=== PATIENT | female | born 1995 | race Caucasian/White ===

== ENCOUNTER 2020-05-06 10:31 | Emergency (ER) | payer OTHER, SELFPAY ==
[2020-05-06] MEDS ORDERED: ACETAMINOPHEN 325 MG TABLET ONE (11:58)
[2020-05-06 14:19] LABS: Absolute Lymphocytes (CBC) 0.9 K/uL (0.7-4.9); Basophils % 0.3 % (0-1.3); Lymphocytes % 6.3 % (15.3-44.8); MPV 8.5 fL (7.6-11.3); RBC Red Blood Cell Count 4.56 M/uL (3.86-4.86)
[2020-05-06 14:39] LABS: ALT/SGPT 15 U/L (12-78); AST/SGOT 15 U/L (15-37); Albumin 3.9 g/dL (3.4-5.0); Alkaline Phosphatase 77 U/L (45-117); BUN Blood Urea Nitrogen 13 mg/dL (7-18); Bicarbonate 27 mmol/L (21-32); Bilirubin Direct 0.2 mg/dL (0-0.2); Bilirubin Total 0.8 mg/dL (0.2-1.0); Glucose Level 83 mg/dL (74-106); Lipase 46 U/L (73-393); Potassium 3.8 mmol/L (3.5-5.1); Protein, Total 8.2 g/dL (6.4-8.2); Sodium Level 140 mmol/L (136-145)
[2020-05-06 15:11] LABS: Urine Bacteria 20-50 /HPF (<20); Urine RBC <5 /HPF (NONE SEEN)
[2020-05-06 15:36] LABS: Urine Blood 2+ (NEG); Urine Glucose NEGATIVE (NEG); Urine Protein 2+ (NEG)
--- NOTE | 2020-05-06 16:31 | RAD REPORT ---
EXAM DESCRIPTION: CT - Abdomen Pelvis W Contrast - 05/06/2020 4:12 pm CLINICAL HISTORY: ABD PAIN COMPARISON: No comparisons TECHNIQUE: Biphasic, helical CT imaging of the abdomen and pelvis was performed following 100 ml non -ionic IV contrast. No oral contrast administered. All CT scans are performed using dose optimization technique as appropriate and may include automated exposure control or mA/KV adjustment according to patient size. FINDINGS: No suspicious findings in the lung bases. The liver, spleen, and pancreas show no suspicious findings. Gallbladder and biliary tree are also wi thout suspicious finding. Renal function is asymmetric and delayed on the right. Right renal parenchymal enhancement is slightl y heterogeneous relative to the left. Minimal dilatation of the right ureter with enhancement of the right ureter hines. No obstructing or nonobstructing calculus identified. No solid mass of the renal parenchyma. Urinary bladder is contracted. Wall thickening and low-level enhancement are noted probab ly greater than would be expected simply for contracted state. No bladder calculus. No adrenal abnorm alities. Uterus and ovaries show no suspicious findings. No dilated bowel loops or bowel wall thickening. No evidence for appendicitis. No free air, free flui d or inflammatory stranding. No hernia, mass or bulky lymphadenopathy. No suspicious bony findings. IMPRESSION: Cystitis and right ureteritis findings are evident with possible early pyelonephritis. N o obstructing calculus.
[2020-05-06] MEDS ORDERED: NA CHLORIDE 0.9% 250 ML ONE (16:59)
[2020-05-06] MEDS ORDERED: CEFTRIAXONE 1000 MG/VIAL ONE (16:59)
--- NOTE | 2020-05-06 16:59 | ER ---
Nurse's Notes [facility] Name: Citlali Burns Age: 25 yrs Sex: Female : 1995 Arrival Date: 05/06/2020 Time: 10:34 Bed 15 Private MD: Diagnosis: Urinary tract infection, site not specified;Fever, unspecified Presentation: 05/06 10:46 Chief complaint: Patient states: RLQ pain, subjective fever x 4 days. Coronavirus sv screen: Client denies travel out of the [place] in the last 14 days. At this time, the client does not indicate any symptoms associated with coronavirus-19. Ebola Screen: No symptoms or risks identified at this time. Risk Assessment: Do you want to hurt yourself or someone else? Patient reports no desire to harm self or others. Onset of symptoms was May 02, 2020. 10:46 Method Of Arrival: Ambulatory sv 10:46 Acuity: COLE 3 sv 10:47 Initial Sepsis Screen: Does the patient meet any 2 criteria? HR > 90 bpm. No. Patient's sv initial sepsis screen is negative. Does the patient have a suspected source of infection? Yes: Acute abdominal pain. Triage Assessment: 10:49 General: Appears in no apparent distress. uncomfortable, well developed, Behavior is sv calm, cooperative, appropriate for age. Pain: Complains of pain in right lower quadrant. Neuro: Level of Consciousness is awake, alert, obeys commands, Oriented to person, place, time, situation, Gait is steady. Respiratory: Respiratory effort is even, unlabored. 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 - Social history:: Smoking status: Patient denies any tobacco usage or history of. Screenin:09 Abuse screen: Denies threats or abuse. Nutritional screening: No deficits noted. ll1 Tuberculosis screening: No symptoms or risk factors identified. Fall Risk None identified. IV access (20 points). Total Li Fall Scale indicates No Risk (0-24 pts). Assessment: 11:40 Reassessment: Received VO from Dr Guardado for Tylenol 650 mg PO x 1. sv 14:00 General: Appears in no apparent distress. Behavior is calm, cooperative, appropriate ll1 for age. GI: Abdomen is round Bowel sounds present X 4 quads. Abd is soft Abdomen is tender to palpation in right lower quadrant. : Urine is cloudy, Reports burning with urination, urinary frequency. 15:00 Reassessment: No changes from previously documented assessment. Patient and/or family ll1 updated on plan of care and expected duration. Pain level reassessed. 16:00 Reassessment: No changes from previously documented assessment. Patient and/or family ll1 updated on plan of care and expected duration. Pain level reassessed. Patient is alert, oriented x 3, equal unlabored respirations, skin warm/dry/pink. 17:00 Reassessment: No changes from previously documented assessment. Patient and/or family ll1 updated on plan of care and expected duration. Pain level reassessed. 18:00 Reassessment: No changes from previously documented assessment. Patient and/or family ll1 updated on plan of care and expected duration. Pain level reassessed. Patient is alert, oriented x 3, equal unlabored respirations, skin warm/dry/pink. Vital Signs: 10:47 BP 129 / 72; Pulse 98; Resp 18; Temp 100.4(O); Pulse Ox 100% ; Weight 83.91 kg; Height sv 5 ft. 1 in. (154.94 cm); Pain 4/10; 14:19 Resp 16; Temp 98.6; ll1 18:08 BP 112 / 84; Pulse 75; Resp 16; Temp 98.3; Pulse Ox 100% ; ll1 10:47 Body Mass Index 34.95 (83.91 kg, 154.94 cm) sv ED Course: 10:34 Patient arrived in ED. ds1 10:46 Arm band placed on. sv 10:47 Triage completed. sv 12:00 Patient has correct armband on for positive identification. Bed in low position. Call ll1 light in reach. Side rails up X 1. 13:20 Sadia Ramirez, ROXANNE is Primary Nurse. ll1 13:22 Cameron Campbell PA is PHCP. jmm 13:22 Alan Guardado MD is Attending Physician. jm 14:10 Missed attempt(s): 22 gauge in left antecubital area. Bleeding controlled, band aid ll1 applied, catheter tip intact. 15:06 Inserted saline lock: 22 gauge in right antecubital area, using aseptic technique. ph 15:23 Done drinking oral contrast. 1 16:09 Urine Microscopic Only Sent. 16:11 CT Abd/Pelvis - PO and IV Contrast In Process Unspecified. EDOK 18:09 No provider procedures requiring assistance completed. IV discontinued, intact, ll1 bleeding controlled, No redness/swelling at site. Pressure dressing applied. Administered Medications: 11:42 Drug: Tylenol 650 mg Route: PO; sv 16:50 Follow up: Response: No adverse reaction; RASS: Alert and Calm (0) 1 16:50 Drug: Rocephin - (cefTRIAXone) 2 grams Route: IVPB; Infused Over: 30 mins; Site: right ll1 antecubital; 18:07 Follow up: Response: No adverse reaction; RASS: Alert and Calm (0); IV Status: ll1 Completed infusion; IV Intake: 250ml Intake: 18:07 IV: 250ml; Total: [facility]ml[facility] Outcome: 16:59 Discharge ordered by . ya 18:09 Discharged to home [facility]. [facility] 18:09 Condition: stable 18:09 Discharge instructions given to patient, Instructed on discharge instructions, follow up and referral plans. medication usage, Demonstrated understanding of instructions, follow-up care, medications, Prescriptions given X 1. 18:10 Patient left the ED. 1 Addendum: 05/10/2020 10:06 Addendum: Culture Results: Positive urine culture. Bacteria is resistant to, has a a5 intermediate sensitivity, or is not tested against prescribed antibiotics. Report given to CANDI for further evaluation and then to water fitness instructor for follow up with patient. Phone call Attempt #1 Attempted to contact pt [id number], left voice mail. Cecily Vale NP states to instruct pt to f/u with PCP (Bacteria sensitive to cephalosporins). Signatures: Dispatcher [employer] [facility] Ashley Myers RN RN sv Mickail, Joel, PA PA Peyton Barnes ds1 Dominique Burdick RN RN aa5 Radha Venegas RN RN Aby Garcia RN RN ph Lewis, Lynsay, RN RN 1 Corrections: (The following items were deleted from the chart) 05/06 10:50 10:47 Pulse 98bpm; Resp 18bpm; Pulse Ox 100%; Temp 100.4F Oral; 83.91 kg; Height 5 ft. sv 1 in.; BMI: 34.9; Pain 4/10; sv
--- NOTE | 2020-05-06 16:59 | EDPHYS ---
Physician Documentation [facility] Name: Citlali Burns Age: 25 yrs Sex: Female : 1995 Arrival Date: 05/06/2020 Time: 10:34 Bed 15 Private MD: ED Physician Alan Guardado HPI: 05/06 13:31 This 25 yrs old Female presents to ER via Ambulatory with complaints of jmm Abdominal Pain, Fever. 13:31 The patient presents with abdominal pain right lower quadrant. Onset: The jmm symptoms/episode began/occurred gradually, 2 day(s) ago. The symptoms do not radiate. Associated signs and symptoms: Pertinent positives: fever, Pertinent negatives: diarrhea, vomiting. The symptoms are described as achy, sharp. Modifying factors: The symptoms are alleviated by nothing, the symptoms are aggravated by nothing. The patient has not experienced similar symptoms in the past. 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 - Social history:: Smoking status: Patient denies any tobacco usage or history of. ROS: 13:31 Cardiovascular: Negative for chest pain, palpitations, and edema, Respiratory: Negative jmm for shortness of breath, cough, wheezing, and pleuritic chest pain. 13:31 Constitutional: Positive for fever. 13:31 Abdomen/GI: Positive for abdominal pain. 13:31 All other systems are negative. Exam: 13:31 Constitutional: This is a well developed, well nourished patient who is awake, alert, jmm and in no acute distress. Head/Face: atraumatic. Eyes: EOMI, no conjunctival erythema appreciated ENT: Moist Mucus Membranes Neck: Trachea midline, Supple Chest/axilla: Normal chest wall appearance and motion. Cardiovascular: Regular rate and rhythm. No edema appreciated Respiratory: Normal respirations, no respiratory distress appreciated 13:31 Back: Normal ROM Skin: General appearance color normal MS/ Extremity: Moves all extremities, no obvious deformities appreciated, no edema noted to the lower extremities Neuro: Awake and alert, normal gait Psych: Behavior is normal, Mood is normal, Patient is cooperative and pleasant 13:31 Abdomen/GI: Inspection: abdomen appears normal, Bowel sounds: normal, Palpation: soft, mild abdominal tenderness, in the right lower quadrant. Vital Signs: 10:47 BP 129 / 72; Pulse 98; Resp 18; Temp 100.4(O); Pulse Ox 100% ; Weight 83.91 kg; Height sv 5 ft. 1 in. (154.94 cm); Pain 4/10; 14:19 Resp 16; Temp 98.6; ll1 18:08 BP 112 / 84; Pulse 75; Resp 16; Temp 98.3; Pulse Ox 100% ; ll1 10:47 Body Mass Index 34.95 (83.91 kg, 154.94 cm) sv MDM: 13:29 Patient medically screened. [facility] 16:56 Data reviewed: vital signs, nurses notes. Counseling: I had a detailed discussion with annette the patient and/or guardian regarding: the historical points, exam findings, and any diagnostic results supporting the discharge/admit diagnosis, lab results, radiology results, the need for outpatient follow up. ED course: Patient is alert and non toxic in appearance in the ED. No signs of resp distress. patient is advised to follow up with pcp and otherwise given strict return precautions. patient understood and agrees with the plan of care. . 05/06 13:30 Order name: Basic Metabolic Panel; Complete Time: 15:47 [facility] 05/06 13:30 Order name: CBC with Diff [facility] 05/06 13:30 Order name: Hepatic Function; Complete Time: 15:47 [facility] 05/06 13:30 Order name: Lipase; Complete Time: 15:47 [facility] 05/06 14:17 Order name: Urine Microscopic Only 05/06 14:17 Order name: Urine Dipstick--Ancillary (enter results); Complete Time: 15:47 05/06 13:30 Order name: IV Saline Lock; Complete Time: 14:03 [facility] 05/06 13:35 Order name: CT Abd/Pelvis - PO and IV Contrast; Complete Time: 16:35 [facility] 05/06 14:17 Order name: Urine --Ancillary (enter results); Complete Time: 15:47 05/06 14:18 Order name: Urine Microscopic Only; Complete Time: 15:47 [facility] 05/06 15:12 Order name: Urine Culture [facility] 05/06 13:30 Order name: Labs collected and sent; Complete Time: 14:02 [facility] 05/06 13:30 Order name: Urine Dipstick-Ancillary (obtain specimen); Complete Time: 14:03 [facility] 05/06 13:30 Order name: Urine Test (obtain specimen); Complete Time: 14:03 [facility] Administered Medications: 11:42 Drug: Tylenol 650 mg Route: PO; sv 16:50 Follow up: Response: No adverse reaction; RASS: Alert and Calm (0) ll1 16:50 Drug: Rocephin - (cefTRIAXone) 2 grams Route: IVPB; Infused Over: 30 mins; Site: right ll1 antecubital; 18:07 Follow up: Response: No adverse reaction; RASS: Alert and Calm (0); IV Status: ll1 Completed infusion; IV Intake: 250ml Disposition: 18:18 Co-signature as Attending Physician, Alan Guardado MD. rn Disposition: 05/06/20 16:59 Discharged to Home. Impression: Urinary tract infection, site not specified, Fever, unspecified. - Condition is Stable. - Discharge Instructions: Urinary Tract Infection, Adult. - Prescriptions for cefpodoxime 200 mg Oral Tablet - take 1 tablet by ORAL route every 12 hours for 10 days with food; 20 tablet. - Medication Reconciliation Form, Thank You Letter, Antibiotic Education, Prescription Opioid Use, Work release form form. - Follow up: Private Physician; When: 2 - 3 days; Reason: Recheck today's complaints, Continuance of care, Re-evaluation by your physician. Signatures: Dispatcher [employer] [facility] Ashley Myers RN RN sv Mickail, Joel, PA PA [facility] Alan Guardado MD MD rn Lewis, Lynsay, RN RN ll1 Corrections: (The following items were deleted from the chart) 13:44 13:31 Abdomen Pelvis W Con+CT.RAD.BRZ ordered. [facility] 18:10 16:59 05/06/2020 16:59 Discharged to Home. Impression: Urinary tract infection, site ll1 not specified; Fever, unspecified. Condition is Stable. Forms are Medication Reconciliation Form, Thank You Letter, Antibiotic Education, Prescription Opioid Use. Follow up: Private Physician; When: 2 - 3 days; Reason: Recheck today's complaints, Continuance of care, Re-evaluation by your physician. [facility]
[2020-05-06 21:28] LABS: Blood Morphology Comment NOT SEEN (NOT SEEN); Platelet Estimate ADEQ; White Blood Cell Scan OK (OK)
--- OUTSIDE RECORDS SUMMARY | 2020-05-07 21:40 | XMS REPORT | Continuity of Care Document ---
:1995 Author Organization [facility] t Address [address] [place] [address] [address]. [address] [place] [address] Care Team Providers Name Role Phone Saran HUDSON, Kishore Attending Clinician Doctor Unassigned, Name Attending Clinician Unavailable Problems This patient has no known problems. Allergies, Adverse Reactions, Alerts This patient has no known allergies or adverse reactions. Medications This patient has no known medications. Procedures This patient has no known procedures. Encounters Start End Encounter Admission Attending Care Care Encounter Source Date/Time Date/Time Type Type Clinicians Facility Department ID 2019-09-04 2019-09-04 Office Ekaterina Noonan [facility] [id number] 15:31:06 16:17:21 Visit Kishore Maya [id number] [place] [id number] [place] [id number] [address] 2019-09-04 2019-09-04 Orders Doctor BULLOCK [id number] 00:00:00 00:00:00 Only UnassWES zamarripa [id number] [place] [facility] [id number] Results This patient has no known results.
== END 2020-05-06 18:10 | disposition home or self-care (01) ==
LOC: ER 10:31
DX: N39.0 Urinary tract infection, site not specified (principal)
CPT/HCPCS: 36415; 74177; 80048; 80076; 81003; 81015; 81025; 83690; 85025; 87077; 87086; 87088; 87186; 96365; 99284; J7050; Q9967